=== PATIENT | male | born 1960 | race Caucasian/White ===

== ENCOUNTER 2024-03-09 13:47 | Emergency (ER) | payer BC, MEDICARE ==
[~2024-03-09] VITALS: Ht 177.8 cm; Wt 85.4 kg
[~2024-03-09 13:47] MED LIST: CLIN-216 PO; HYDR-4383 PO; NORCO10T PO; PANT40TA39 PO; PRAV10TA38 PO; SERT-153 PO; SYN0.075T PO; VALS1TAB PO
[2024-03-09 14:37] LABS: BILIRUBIN,URINE NEGATIVE (Neg); CLARITY,URINE CLEAR (Clear); COLOR,URINE YELLOW (Yellow); GLUCOSE, URINE NEGATIVE (Neg); KETONES,URINE NEGATIVE (Neg); LEUKOCYTE ESTERASE ,URINE NEGATIVE (Neg); NITRITES, URINE NEGATIVE (Neg); OCCULT BLOOD,URINE TRACE-INTACT (Neg); PROTEIN,URINE NEGATIVE (Neg); UROBILINOGEN,URINE 0.2 E.U/dL (0.2-1.0)
[2024-03-09 14:48] LABS: MUCUS STRANDS FEW /LPF (Neg); SQUAMOUS EPITHELIAL CELL,UR FEW /LPF (FEW); UA COLLECTION TYPE CLN CATCH MIDSTREAM
[2024-03-09 14:49] LABS: CAL OXALATE CRYSTALS 4+ /HPF (NEGATIVE)
[2024-03-09 14:50] LABS: BACTERIA,URINE FEW /HPF (Neg); WBC,URINE 0-4 /HPF (0-4)
[2024-03-09 15:15] LABS: BASOPHILS % (AUTO) 0.3 % (0-1); EOSINOPHILS # (AUTO) 0.1 X10'3 (0-0.9); EOSINOPHILS % (AUTO) 2.5 % (0-6); HEMATOCRIT 52.1 % (42.0-52.0); HEMOGLOBIN 17.6 g/dl (14.0-17.9); LYMPHOCYTES # (AUTO) 1.3 X10'3 (1.1-4.8); LYMPHOCYTES % (AUTO) 21.9 % (21-51); MEAN CORPUSCULAR HEMOGLOBIN 32.2 PG (27.0-31.0); MEAN CORPUSCULAR HGB CONC 33.7 g/dL (33.0-36.5); MEAN CORPUSCULAR VOLUME 95.5 FL (78-98); MEAN PLATELET VOLUME 7.4 FL (7.4-10.4); MONOCYTES # (AUTO) 0.5 X10'3 (0-0.9); MONOCYTES % (AUTO) 8.1 % (2-12); NEUTROPHILS # (AUTO) 3.9 X10'3 (1.8-7.7); NEUTROPHILS % (AUTO) 67.2 % (42-75); PLATELET COUNT 229 X10'3 (140-440); RED BLOOD COUNT 5.46 X10'6 (4.70-6.10); RED CELL DISTRIBUTION WIDTH 13.6 % (11.5-14.5); WHITE BLOOD COUNT 5.8 X10'3 (4.5-11.0)
[2024-03-09 15:21] LABS: ALBUMIN 3.8 G/DL (3.4-5.0); ANION GAP 6 (8-16); BLOOD UREA NITROGEN 18 MG/DL (7-18); BUN/CREATININE RATIO 23.7 (10.0-20.0); CHLORIDE 102 MMOL/L (99-107); CREATININE 0.76 MG/DL (0.60-1.10); GLUCOSE 121 MG/DL (70-104); MAGNESIUM 1.9 MG/DL (1.5-2.4); SODIUM 136 MMOL/L (135-145); TOTAL CARBON DIOXIDE 28.1 MMOL/L (24-32); eCRCL 100 ML/MIN; eGFR > 90 ML/MIN
[2024-03-09] MEDS ORDERED: SULF1TAB49 PO (15:26)
[2024-03-09] MEDS ORDERED: HYDR-3686 PO (15:26)
[2024-03-09 15:33] VITALS: BP 158/95; PULSE 79; RESP 18; TEMP 98.8; O2SAT 95
== END 2024-03-09 15:34 | disposition home or self-care (01) ==
LOC: ER 13:49
DX: L73.9 Follicular disorder, unspecified (principal); R59.1 Generalized enlarged lymph nodes; H61.22 Impacted cerumen, left ear; E78.00 Pure hypercholesterolemia, unspecified; I10 Essential (primary) hypertension; K21.9 Gastro-esophageal reflux disease without esophagitis; E11.9 Type 2 diabetes mellitus without complications; E03.9 Hypothyroidism, unspecified; Z88.1 Allergy status to other antibiotic agents; Z88.8 Allergy status to other drugs, medicaments and biological substances; Z79.2 Long term (current) use of antibiotics; Z79.899 Other long term (current) drug therapy
CPT/HCPCS: 36415; 69209; 80048; 81001; 83735; 84145; 85025; 87040; 99283

== ENCOUNTER 2025-02-26 12:57 | Emergency (ER) | payer BC, MEDICARE ==
[~2025-02-26] VITALS: Ht 177.8 cm; Wt 96.4 kg
--- NOTE | 2025-02-26 13:49 | ELECTROCARDIOGRAPH REPORT ---
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 Yohannes Delarosa Measurements Intervals [place] Rate: 62 P: 47 PA: 167 QRS: -20 QRSD: 83 T: 68 QT: 367 QTc: 373 Interpretive Statements Sinus rhythm Borderline left axis deviation Borderline T abnormalities, lateral leads Electronically Signed On 02-28-2025 15:44:[address] Yohannes Delarosa Please click the below link to view image of tracing.
[2025-02-26 13:52] LABS: BASOPHILS % (AUTO) 0.4 % (0-1); EOSINOPHILS # (AUTO) 0.1 X10'3 (0-0.9); EOSINOPHILS % (AUTO) 1.1 % (0-6); HEMATOCRIT 50.7 % (42.0-52.0); HEMOGLOBIN 17.3 g/dl (14.0-17.9); LYMPHOCYTES # (AUTO) 1.2 X10'3 (1.1-4.8); LYMPHOCYTES % (AUTO) 25.2 % (21-51); MEAN CORPUSCULAR HEMOGLOBIN 31.8 PG (27.0-31.0); MEAN CORPUSCULAR HGB CONC 34.1 g/dL (33.0-36.5); MEAN CORPUSCULAR VOLUME 93.2 FL (78-98); MEAN PLATELET VOLUME 6.9 FL (7.4-10.4); MONOCYTES # (AUTO) 0.3 X10'3 (0-0.9); MONOCYTES % (AUTO) 5.6 % (2-12); NEUTROPHILS # (AUTO) 3.3 X10'3 (1.8-7.7); NEUTROPHILS % (AUTO) 67.7 % (42-75); PLATELET COUNT 262 X10'3 (140-440); RED BLOOD COUNT 5.44 X10'6 (4.70-6.10); RED CELL DISTRIBUTION WIDTH 13.6 % (11.5-14.5); WHITE BLOOD COUNT 4.9 X10'3 (4.5-11.0)
[2025-02-26 14:06] LABS: ALANINE AMINOTRANSFERASE 31 U/L (12-78); ALBUMIN 3.9 G/DL (3.4-5.0); ALBUMIN/GLOBULIN RATIO 1.3 (1.1-1.5); ALKALINE PHOSPHATASE 71 IU/L (46-116); ANION GAP 7 (8-16); ASPARTATE AMINO TRANSFERASE 19 U/L (10-37); BILIRUBIN,TOTAL 0.4 MG/DL (0.1-1.0); BLOOD UREA NITROGEN 19 MG/DL (7-18); BUN/CREATININE RATIO 24.1 (10.0-20.0); CALCIUM 8.9 MG/DL (8.5-10.1); CHLORIDE 103 MMOL/L (99-107); CREATININE 0.79 MG/DL (0.60-1.10); GLUCOSE 139 MG/DL (70-104); LIPASE 50 U/L (16-77); SODIUM 138 MMOL/L (135-145); TOTAL CARBON DIOXIDE 28.1 MMOL/L (24-32); eCRCL 95 ML/MIN; eGFR > 90 ML/MIN
[2025-02-26 14:37] LABS: BILIRUBIN,URINE NEGATIVE (Neg); CLARITY,URINE CLEAR (Clear); COLOR,URINE YELLOW (Yellow); GLUCOSE, URINE NEGATIVE (Neg); KETONES,URINE NEGATIVE (Neg); LEUKOCYTE ESTERASE ,URINE NEGATIVE (Neg); NITRITES, URINE NEGATIVE (Neg); OCCULT BLOOD,URINE NEGATIVE (Neg); PROTEIN,URINE NEGATIVE (Neg); UROBILINOGEN,URINE 0.2 E.U/dL (0.2-1.0)
[2025-02-26] MEDS ORDERED: iohexol 300mg/ml 100ml inj. ONE (14:52)
[2025-02-26 14:57] LABS: UA COLLECTION TYPE VOIDED
--- NOTE | 2025-02-26 15:39 | RADIOLOGY REPORT ---
EXAM: CT Abdomen and Pelvis With Intravenous Contrast CLINICAL INDICATION: abd pain radiating to back TECHNIQUE: Axial computed tomography images of the abdomen and pelvis with intravenous contrast. is CT exam was performed using one or more of the following dose reduction techniques: automated exp osure control, adjustment of the mA and/or kV according to patient size, and/or use of iterative lavell nstruction technique. CONTRAST: COMPARISON: None FINDINGS: LUNG BASES: Unremarkable. No mass. No consolidation. MEDIASTINUM: Small esophageal hiatal hernia. ABDOMEN: LIVER: Fatty infiltration of the liver. GALLBLADDER AND BILE DUCTS: Unremarkable. No calcified stones. No ductal dilation. PANCREAS: Unremarkable. No mass. No ductal dilation. SPLEEN: Unremarkable. No splenomegaly. ADRENALS: Unremarkable. No mass. KIDNEYS AND URETERS: Unremarkable. No solid mass. No hydronephrosis. STOMACH AND BOWEL: Fecal retention in the colon consistent with constipation. No obstruction. No mucosal thickening. PELVIS: APPENDIX: No findings to suggest acute appendicitis. BLADDER: Unremarkable. No mass. REPRODUCTIVE: Unremarkable as visualized. ABDOMEN and PELVIS: INTRAPERITONEAL SPACE: Unremarkable. No free air. No significant fluid collection. BONES/JOINTS: Anterior fusion of L5-S1. No acute fracture. No dislocation. SOFT TISSUES: Umbilical hernia containing fat. Inguinal hernia, bilaterally. VASCULATURE: Scattered calcified atherosclerotic disease of aorta. No abdominal aortic aneurysm. LYMPH NODES: Unremarkable. No enlarged lymph nodes. OTHER FINDINGS: . IMPRESSION: 1. Small esophageal hiatal hernia. 2. Fecal retention in the colon consistent with constipation. 3. Umbilical hernia containing fat. 4. Inguinal hernia, bilaterally.
[2025-02-26 16:06] VITALS: BP 136/80; PULSE 68; RESP 16; O2SAT 100
[2025-02-26] MEDS ORDERED: MAGN296S68 PO (16:08)
--- NOTE | 2025-02-26 16:09 | Physician Documentation ---
History of Present Illness General Chief Complaint: Abdominal Pain Stated Complaint: NAUSEA/BACK PAIN X6 DAYS Time Seen by MD: 15:57 Primary Medical Doctor: Dr. Jonathan RAVI Mode of Arrival: POV, Ambulatory History of Present Illness Initial Comments 64-year-old male presents to the emergency department with the complaints of lower abdominal pain, cramping and fullness. Reports that he just recently discontinued those in bed because he was having problems with constipation and was placed on polyethylene glycol. He has been having some leaky stool but having difficulty passing stool. He has been no fevers or prior history of the same. No left lower quadrant pain. Medication Reconciliation Allergies: Coded Allergies: amoxicillin (Verified Allergy, Unknown, 03/09/24) clavulanic acid (Verified Allergy, Unknown, 03/09/24) prednisone (Verified Adverse Reaction, Unknown, nausea, 03/09/24) Scheduled Clindamycin HCl (Clindamycin HCl), 300 MG PO TID, (Reported) Levothyroxine Sodium* (Synthroid*), 75 MCG PO DAILY, (Reported) Magnesium Citrate (MAGNESIUM CITRATE oral solution), 296 ML PO ONCE Pantoprazole Sodium* (Protonix*), 40 MG PO DAILY, (Reported) Pravastatin Sodium* (Pravachol*), 20 MG PO DAILY, (Reported) Sertraline HCl (Sertraline HCl), 50 MG PO DAILY, (Reported) Valsartan/Hydrochlorothiazide (Diovan Hct 160-25 Mg Tablet), 0.5 TAB PO DAILY, (Reported) Scheduled PRN Hydrocodone Bit/Acetaminophen 10/325 MG* ([place] 10/325 MG*), 1 TAB PO Q6H PRN for pain, (Reported) Hydrocodone/Acetaminophen ([place] 5-325 Tablet), 1-2 TABLET PO Q6H PRN for pain Past Medical History Past Medical History: High Cholesterol, Hypertension, GERD, Hemorrhoids, Hernia, Diabetes, Hypothyroidism, Chronic Back Pain, Depression Past Surgical History: abdominal surgery, orthopedic surgeries, other Other Past Surgical History: Hemorrhoid sx Smoking: Chew Alcohol Use: Occasionally Drug Use: none Lives with: Spouse Lives In: Home Occupation: disabled Review of Systems All Other Systems at this time: Reviewed and Negative Constitutional: Denies: fever, chills GI: Reports: abdominal pain, nausea Physical Exam Physical Exam Vital Signs: RN Vital Signs have been reviewed: Yes, Temperature: 98.0, Heart Rate: 73, Respiratory Rate: 16, BP: 163/102, Pulse Oximetry: 97, Weight: 96.360 Oxygen Flow Rate: 0 General Appearance: alert, mild distress Head: normal inspection Face: normal inspection Pupils/EOM/Fundus: PERRLA Respiratory: no respiratory distress Chest: no accessory muscle use Cardiovascular: regular rate, rhythm Gastrointestinal: other (Tympanic distended); No: rebound, guarding, rigidity Back: normal inspection Extremities: normal range of motion Neurologic: oriented x4 Motor / Sensory: no motor deficit, no sensory deficit Psychiatric: normal mood/affect Skin: normal color, warm/dry Progress Results/Orders Results/Orders Vital Signs 02/26/25 02/26/25 02/26/25 02/26/25 13:09 14:13 14:13 16:06 Temp 98.0 98.0 98.0 Pulse 71 73 68 Resp 16 16 16 16 B/P (MAP) 149/82 163/102 (122) 136/80 (98) Pulse Ox 98 97 100 O2 Flow Rate 0 0 0 Laboratory Tests Test 02/26/25 13:33 02/26/25 13:49 White Blood Count 4.9 Red Blood Count 5.44 Hemoglobin 17.3 Hematocrit 50.7 Mean Corpuscular Volume 93.2 Mean Corpuscular Hemoglobin 31.8 H Mean Corpuscular Hemoglobin Concent 34.1 Red Cell Distribution Width 13.6 Platelet Count 262 Mean Platelet Volume 6.9 L Neutrophils (%) (Auto) 67.7 Lymphocytes (%) (Auto) 25.2 Monocytes (%) (Auto) 5.6 Eosinophils (%) (Auto) 1.1 Basophils (%) (Auto) 0.4 Neutrophils # (Auto) 3.3 Lymphocytes # (Auto) 1.2 Monocytes # (Auto) 0.3 Eosinophils # (Auto) 0.1 Basophils # (Auto) 0.0 CBC Comment Sodium Level 138 Potassium Level 4.0 Chloride Level 103 Carbon Dioxide Level 28.1 Anion Gap 7 L Blood Urea Nitrogen 19 H Creatinine 0.79 Estimated GFR/1.73 m2 > 90 BUN/Creatinine Ratio 24.1 H Glucose Level 139 H Calcium Level 8.9 Total Bilirubin 0.4 Aspartate Amino Transf (AST/SGOT) 19 Alanine Aminotransferase (ALT/SGPT) 31 Alkaline Phosphatase 71 Troponin I High Sensitivity 4 Total Protein 7.0 Albumin 3.9 Globulin 3.1 Albumin/Globulin Ratio 1.3 Lipase 50 Chemistry Comments Urine Specimen Description Voided Urine Color Yellow Urine Clarity Clear Urine pH 6.0 Urine Specific [place] 1.010 Urine Protein Negative Urine Glucose (UA) Negative Urine Ketones Negative Urine Occult Blood Negative Urine Nitrite Negative Urine Bilirubin Negative Urine Urobilinogen 0.2 Urine Leukocyte Esterase Negative Urine Culture Indicated Not ind Volume Urine Centrifuged 10 ml Urine Comment Medical Decision Making Differential Diagnosis Examination history is 64-year-old male with lower abdominal pain is reassuring for no acute surgical processes as seen on CT. No evidence of diverticulitis, colitis, infectious or inflammatory bowel, stricture or obstruction. CT is showing constipation. Patient is a continue with his polyethylene glycol and we have discussed the addition of Mag citrate. His labs were all reassuring and urinalysis is reassuring. Discharged from the emergency department to follow up with the primary care physician and/or return for increased pain, nausea and vomiting and or fever. Constipation that likely secondary to the Ozempic for which I have encouraged the patient to continue with hydration and PEG with or without the addition of Mag citrate. Patient was safely discharged in the emergency department Departure Disposition: HOME / SELF CARE / HOMELESS Impression: Primary Impression: Constipation by delayed colonic transit Condition: Stable Discharge Instructions: Constipation, Adult, [id number] Additional Instructions: In review of your CT scan and labs all are reassuring. Please continue with the MiraLax daily and add Mag citrate. He will drink a half a bottle wait 2 hours and repeated needed. Please stay well hydrated and make follow up appointment with your primary care physician for consideration to GI. Please return to the emergency department for fever, increased pain or nausea or vomiting. Thank you for visiting emergency department [facility]. Referrals: NO PRIMARY CARE PROVIDER (PCP) Prescriptions Magnesium Citrate (MAGNESIUM CITRATE oral solution) 296 Ml Solution 296 ML PO ONCE for 1 Day, #296 ML 0 Refills Prov: KONRAD VU 02/26/25 Education Educated: Patient Educated regarding: diagnosis, treatment Signature Scribe Signature: . Attestation: KONRAD HURTADO February 26, 2025 16:09
[2025-02-26 16:25] VITALS: TEMP 98
== END 2025-02-26 16:30 | disposition home or self-care (01) ==
LOC: ER 12:58
DX: K59.01 Slow transit constipation (principal); E03.9 Hypothyroidism, unspecified; E11.9 Type 2 diabetes mellitus without complications; E78.00 Pure hypercholesterolemia, unspecified; I10 Essential (primary) hypertension; Z88.0 Allergy status to penicillin; Z88.8 Allergy status to other drugs, medicaments and biological substances
CPT/HCPCS: 36415; 74177; 80053; 81003; 83690; 84484; 85025; 93005; 99285; Q9967